=== PATIENT | male | born 2005 | race Two or more races ===

== ENCOUNTER 2025-05-01 01:48 | Emergency (ER) | payer OTHER ==
[~2025-05-01] VITALS: Ht 182.9 cm; Wt 74.5 kg
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
[2025-05-01] MEDS: OXYCODONE W/ ACETAMINOPHEN 5/325MG TABLET PO ONE (02:59)
[2025-05-01] MEDS: KETOROLAC TROMETH 60MG/2ML VIAL IM ONE (02:59)
[2025-05-01] MEDS ORDERED: LIDOCAINE 2%HCL (LOCAL ANESTH.) INJ 10ml MDV IJ ONE (03:00)
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
[2025-05-01] MEDS: LORazepam 2MG/ML-1ML VIAL ONE (03:32)
[2025-05-01] MEDS: MORPHINE SULFATE 4 MG/ML SYR/VIAL ONE (03:32)
[2025-05-01] MEDS: ONDANSETRON HCL 4 MG/2 ML VIAL ONE (03:32)
[2025-05-01] MEDS: MORPHINE SULFATE 4 MG/ML SYR/VIAL IV ONE (03:54)
[2025-05-01] MEDS: SODIUM CHLORIDE 0.9% 1,000 ML IV ONE (03:55)
[2025-05-01] MEDS: LORazepam 2MG/ML-1ML VIAL IV ONE (03:55)
[2025-05-01] MEDS: ONDANSETRON HCL 4 MG/2 ML VIAL IV ONE (03:55)
[2025-05-01 04:17] LABS: Hematocrit 39.8 % (41.0-53.0); Hemoglobin 13.3 g/dL (13.5-17.5); Mean Corpuscular Hemoglobin 30.1 pg (28.0-32.0); Mean Corpuscular Volume 89.8 fL (80.0-100.0); Nucleated Red Blood Cells % 0.0 %
[2025-05-01 04:33] VITALS: PULSE 90; RESP 18; O2SAT 99
[2025-05-01 04:34] LABS: Alanine Aminotransferase 10 U/L (7-40); Albumin 4.3 g/dL (3.2-4.8); Anion Gap 12 (5-15); BUN/Creatinine Ratio 9.8 (10.0-20.0); Blood Urea Nitrogen 10 mg/dL (9-23); Calcium 9.2 mg/dL (8.7-10.4); Carbon Dioxide 22 mmol/L (20-31); Glucose 88 mg/dL (74-106); Potassium 3.7 mmol/L (3.5-5.1); Sodium 145 mmol/L (136-145); Total Protein 6.6 g/dL (5.7-8.2)
[2025-05-01 04:35] LABS: Bilirubin, Total 0.6 mg/dL (0.2-1.0)
[2025-05-01 04:41] LABS: Alkaline Phosphatase 36 U/L (46-116); Chloride 111 mmol/L (98-107)
[2025-05-01] MEDS: LIDOCAINE 2%HCL (LOCAL ANESTH.) INJ 10ml MDV ONE (04:52)
--- NOTE | 2025-05-01 05:02 | DVH ---
CHEST RADIOGRAPH Indication: post thoracostomy Technique: Single frontal view of the chest was obtained COMPARISON: CT dated 05/01/2025 FINDINGS: Lines and Tubes: Right large bore thoracostomy in satisfactory position. Trace right lateral subcutan eous emphysema. Lungs: Clear Pleura: No definite effusion. No pneumothorax. Cardiomediastinal contours: Unremarkable Bones: Mildly displaced right posterolateral 9th rib fracture. IMPRESSION: 1. Complete interval resolution of right tension pneumothorax status post interval placement of large bore thoracostomy. 2. Trace lateral right chest wall subcutaneous emphysema and mildly displaced right posterolateral 9t h rib fracture.
[2025-05-01 05:45] VITALS: BP 112/58; PULSE 80; RESP 18; TEMP 98.1; O2SAT 94
== END 2025-05-01 04:50 | disposition short-term general hospital (02) ==
LOC: ER 01:48
DX: J93.0 Spontaneous tension pneumothorax (principal); R07.81 Pleurodynia; F10.90 Alcohol use, unspecified, uncomplicated; Z46.82 Encounter for fitting and adjustment of non-vascular catheter; Y08.89XA Assault by other specified means, initial encounter; Y93.39 Activity, other involving climbing, rappelling and jumping off; Y92.89 Other specified places as the place of occurrence of the external cause; Y99.8 Other external cause status; Y90.9 Presence of alcohol in blood, level not specified
CPT/HCPCS: 32551; 36415; 71045; 71250; 80053; 85025; 96361; 96374; 96375; 99285; J2003; J2060; J2270; J2405; J7030; 99291; J1885